=== PATIENT | female | born 1955 | race Caucasian/White ===

== ENCOUNTER 2023-11-21 15:52 | Emergency (ER) | payer OTHER, SELFPAY ==
[2023-11-21 15:54] VITALS: BP 165/88; PULSE 85; RESP 16; TEMP 36.7; O2SAT 98
--- NOTE | 2023-11-21 16:19 | ED.GENADULT ---
HPI - General Adult General Chief complaint: Skin/Abscess/Foreign Body Stated complaint: hearing aid stuck Time Seen by Provider: 11/21/23 16:08 History of Present Illness HPI narrative: 60-year-old female presented to the emergency department for evaluation for the distal tip of her hearing aid is lodged in her right ear. Patient states this happened at approximately 11:00 p.m. last night when she took her earring out she noticed that the rubber tip was missing and could feel was still in her ear. Patient initially presented to audiology but unfortunately the tip was placed further in. Patient then went to urgent care he and was then referred to the emergency department. Related Data Home Medications Medication Instructions Recorded Confirmed ascorbic acid (vitamin C) 1,000 mg 1 g PO DAILY 07/27/20 06/17/23 tablet cholecalciferol (vitamin D3) 125 125 mcg PO DAILY 07/27/20 06/17/23 mcg (5,000 unit) capsule multivitamin 1 tablet PO DAILY 07/27/20 06/17/23 vitamin B complex (B 1 tablet PO DAILY 07/27/20 06/17/23 Complex-Vitamin B12 tablet) vitamin E 100 unit capsule 100 unit PO DAILY 07/27/20 06/17/23 zinc 50 mg tablet 50 mg PO DAILY 07/27/20 06/17/23 Allergies Allergy/AdvReac Type Severity Reaction Status Date / Time Penicillins Allergy Unknown Hives Verified 11/21/23 13:18 Review of Systems Review of Systems: All systems reviewed & are unremarkable except as noted in HPI and below PMFSH Past Medical History Medical History Allergies Chronic idiopathic urticaria Dislocation of right shoulder joint Hyperlipidemia Hypertension Surgical History Surgical History No pertinent past surgical history Family History Family History Father Diabetes mellitus Hypertension Depression Anxiety Heart disease Cerebrovascular accident Mother Cancer Sibling Cancer Diabetes mellitus Hypertension Anxiety Depression Heart disease Grandparent Cancer Diabetes mellitus Hypertension Grandparent Cancer Diabetes mellitus Hypertension Heart disease Social History Social History Smoking status: Never smoker Second hand tobacco smoke exposure: No Alcohol intake: never Substance use: never Substance use type: does not use Lack of Transportation: No Lack of Food: Never True Current Housing: I Have Housing Concerned About Future Housing: No Difficulty Paying Gas/Electric Bills: No Difficulty Paying for Meds: No Currently Unemployed: No Education: High School Diploma/GED Difficulty w/ Childcare or Family Care: No Living arrangements: with family Occupation/Education: retired Gender identity (if verbalized by the patient): Female Sexual Orientation (if Verbalized by the Patient): Straight or Heterosexual Spiritual care concerns: No Agree to blood products: Yes Exam Narrative: APPEARANCE: Well appearing, no pain, no distress, well-nourished. HEAD: normocephalic, atraumatic. EYES: PERRLA/EOMI, conjunctivae clear. NOSE: Normal no drainage EARS: rubber tip was in the right ear canal, this was removed as described in the procedure note and the right TM did have some erythema but no evidence of perforation. THROAT: Pharynx clear, no exudate. NECK: Supple. No adenopathy, no masses. RESPIRATORY: Airway patent, respirations nonlabored. Clear to auscultation bilaterally, no rales, rhonchi, wheezing. CARDIOVASCULAR: Regular rate and rhythm without murmurs rubs or gallops. ABDOMINAL: Soft, nontender, nondistended, normal bowel sounds MUSCULOSKELETAL: Moves all extremities. Strength/ROM intact, No edema, No calf tenderness. NEURO: Alert. Cranial nerves II through XII intact. Grossly intact SKIN: Warm, dry. Normal Color Course Vital Signs Alejandra
[2023-11-21 16:43] VITALS: BP 137/62; PULSE 82; RESP 17; TEMP 36.7; O2SAT 18
== END 2023-11-21 16:45 | disposition home or self-care (01) ==
LOC: ANHED 16:24
PROVIDERS: Emergency Provider Emergency Medicine; PCP Physician Assistant Medical
DX: T16.1XXA Foreign body in right ear, initial encounter (principal); E78.5 Hyperlipidemia, unspecified; I10 Essential (primary) hypertension; Z79.899 Other long term (current) drug therapy; W44.G1XA Audio device entering into or through a natural orifice, initial encounter
CPT/HCPCS: 69200; 99282

== ENCOUNTER 2025-02-24 01:39 | Day surgery (SDC) | payer OTHER, SELFPAY ==
--- OUTSIDE RECORDS SUMMARY | 2023-10-18 16:30 | XMS_ITS ---
Author Organization [facility] [place] ([address]) Address [address] [place] [address] Care Team Providers Care Igniter Assembler Name Role Phone Torin Slaughterah Primary Care Provider Unavailab Lawrence Gomez Unavailable [phone] SHAWANDA-Suzanna, Provider Unavailable Unavailab ej REASON FOR VISIT [facility] To [facility] Conversion Encounter Medications Medication SIG (Take, Route, [...] Location Date Provider Diagnosis [facility] - Stephanie [address] [place] [address] [place] [address] 10/18/2023 Provider Dusty Idiopathic urticaria L50.1 and [...] Notes * Candice FLOYDOB:1955 (70 yo F)Acc No.[id number]:10/18/2023 Patient: Gwendolyn GOMEZ Provider: Lesly Briseno :1955 A ge:68 Y S ex:Female Date:10/18/2023 Address:[address] [place], [place] [id number] Pcp:Leah Slaughter Subjective: * Chief Complaints: * 1 . [facility] Conversion Encounter. * Medical History: * Medications: [...] Procedure Codes: * Electronic signature of Timmy MAYBERRY-Migration on 02/24/2025 at 01:56 AM CDT Sign off status: Pending * Provider: Lesly vega Migration Date: 0 10/18/2023 Generated for Jazmine scales/Ortiz/Henny on: 01:56 AM CDT
--- OUTSIDE RECORDS SUMMARY | 2024-06-16 12:30 | XMS_ITS ---
Author Organization [facility] [place] ([address]) Address [address] [place] [address] Care Team Providers Care Tablet Making Machine Operator Name Role Phone Leah Slaughter Primary Care Provider UnavailLawrence Haskins Unavailable [phone] REASON FOR VISIT [facility] follow-up Encounters Encounter Location Date Provider Diagnosis [address] [address] 06/16/2024 Lawrence Taylor Plan Of Treatment No Information Progress Notes * Candice FLOYDOB:1955 (70 yo F)Acc No.[id number]:06/16/2024 Progress Notes Patient: Gwendolyn GOMEZ Provider: Gonzalo Taylor PA-C :1955 A ge:69 Y S ex:Female Date:06/16/2024 Address:[address] [facility] Pcp:Leah Slaughter Subjective: * Chief Complaints: * 1 . [facility] follow-up. * Medical History: Objective: * Vitals: Assessment: Plan: * Treatment: * Billing Information: * Visit Code: * Procedure Codes: * Electronic signature of Armin Taylor PA-C on 02/24/2025 at 01:57 AM CDT Sign off status: Pending * Provider: Gonzalo Taylor PA-C Date: 0 06/16/2024 Generated for Printi ng/Faxing/eTransmitting on: 1 01:57 AM CDT
--- OUTSIDE RECORDS SUMMARY | 2024-09-02 12:30 | XMS_ITS ---
Author Organization [facility] [place] ([address]) Address [address] [place] [address] Care Team Providers Care Visitor Services Representative Name Role Phone Leah Slaughter Primary Care Provider UnavailLawrence Haskins Unavailable [phone] REASON FOR VISIT [facility] follow-up Encounters Encounter Location Date Provider Diagnosis [address] [address] 09/02/2024 Lawrence Taylor Plan Of Treatment No Information Progress Notes * Candice FLOYDOB:1955 (70 yo F)Acc No.[id number]:09/02/2024 Progress Notes Patient: Gwendolyn GOMEZ Provider: Gonzalo Taylor PA-C :1955 A ge:69 Y S ex:Female Date:09/02/2024 Address:[address] [facility] Pcp:Leah Slaughter Subjective: * Chief Complaints: * 1 . [facility] follow-up. * Medical History: Objective: * Vitals: Assessment: Plan: * Treatment: * Billing Information: * Visit Code: * Procedure Codes: * Electronic signature of Armin Taylor PA-C on 02/24/2025 at 01:56 AM CDT Sign off status: Pending * Provider: Gonzalo Taylor PA-C Date: 0 09/02/2024 Generated for Printi ng/Faxing/eTransmitting on: 1 01:56 AM CDT
[2025-02-15 10:38] VITALS: BMI 30.7
--- OUTSIDE RECORDS SUMMARY | 2025-02-24 01:56 | XMS_ITS | Encounter Summary ---
Author Organization [facility] Address [address] [facility] [place] [address] Care Team Providers Care Adult Educator Name Role Phone Noemí Vitale Primary Care Provider Encounter Details Date Type Department Care Team (Late st Contact Info) Description 08/31/2020 Telephone [facility] [address] [place] [address] Demarcus Lucia MD [address] OF ALLERGY/IMMUNOLOGY [place], [place] [id number] Social History Tobacco Use Types Packs/Day Years Used Date Smoking Tobacco: Never Smokeless Tobacco: Never Comments Unknown Sex and Gender Information Value Date Recorded Sex Assigned at Not on file Legal Sex Female 9:06 AM CDT Gender Identity Not on file Sexual Orientation Not on file COVID-19 Exposure Response Date Recorded In the last month, have you been in contact with someone who was confirmed or suspected to have Coronavirus / COVID-19? No / Unsure 08/04/2020 11:08 AM CDT documented as of this encounter Miscellaneous Notes * Telephone Encounter - Kady Lewis - 08/31/2020 9:28 AM CDT Current Provider name: Dr. Lucia Reason for call: Gwendolyn Peters has called re: paperwork needed from Dr. Lucia so she can gether Zolair Infusion shots at the Infusion center. Please reach out again and give her a call. She also spoke to Dr. Villanueva and she says she's spoken to Jennifer. Thanks. Patient Call Back number: [phone] documented in this encounter Plan of Treatment Not on file documented as of this encounter Visit Diagnoses Not on filedocumented in this encounter Care Teams Adult Educator Relationship Specialty Start Date End Date Noemí Vitale DO [address] [place] [id number] PCP - General Family Medicine 08/23/20 documented as of this encounter
--- OUTSIDE RECORDS SUMMARY | 2025-02-24 01:57 | XMS_ITS | Data Portability ---
Author Organization [facility] [place], [place] for [facility], [id number] [facility] Address [address] [place] [address] Assessment No assessment recorded. Plan of Treatment Reminders Order Date Submit Date Provider Last Modified By Organization Details Last Modified Time Details Appointments ANNUAL- EST 15 2025 07:30A M MICK MIMS MD Not available Not available Not available Lab None recorded. Referral None recorded. Procedures None recorded. Surgeries None recorded. Imaging MAMMO, screening , tomosynth esis, bilateral [address] [place] [address] - Radiology New Fax # As Of 08/25/23), [address] [place], [address], 02/17/2025 08:53:28 Medication Orders None recorded. Patient TargetsNo targets recorded. Patient InstructionsNo instructions recorded. Reason for Referral None Reported. Problems Name Problem SNOMED Code Status Onset Date Resolution Date Notes Provider Name and Address Organization Details Recorded Time Idiopathic urticaria 80620671 Active Chronic idiopathic urticaria, Problem Code: 708.1; Problem Code Type: ICD-9; Not Available [facility] 12:22:40 Essential hypertensi on 52109594 Active High Blood Pressure, Problem Code Descriptio n: 'High Blood Pressure'; Not Available [facility] 12:22:40 Hyperchole sterolemia 23299577 Active 2024 Sarah mejia [facility] [place], [place] for [facility] 2001 07/24/202 5 08:51:19 Problem Notes None recorded. Procedures Surgical History Date Name Laterality Status Provider Name and Address Organization Details Recorded Time 5 Date of Last Mammogram completed [facility] 11/25/2024 08:52:34 0 Date of Last Pap Smear completed [facility] 11/24/2024 16:17:22 Imaging Results None recorded. Procedure Notes None recorded. Medical Equipment None Reported. Allergies Allergen ID Allergen Name Allergen Category Reaction Reaction Severity Criticality Documentation Date Start Date Code Code System Note Provider Name and Address Organization Details Recorded Time 138375 Product containin g penicilli n (product) medicatio n hives Not available Not available 09/02/2024 52393 8001 SNOMED Aller gyCod e: '476' ; Aller gyNam e: 'PENI CILLI NS'; Aller gyCon ceptT ype: 'FDBA LLERG P'; Not Available [facility] 5 13:06:54 189453 pseudoeph edrine / triprolid ine medicatio n hives Not available Not available 09/02/2024 75714 7 RxNorm Not Available [facility] 13:06:55 Medications Name Sig Start Date Stop Date Status Note LastModified by Organization Details LastModified Time prednisone 10 mg tablet TAKE 3 TABLETS BY MOUTH DAILY FOR 3 DAYS, 2 TABLETS FOR 3 DAYS, THEN 1 TABLET FOR 3 DAYS active Not Available Not Available No t Available lisinopril 20 mg tablet TAKE 1 TABLET BY MOUTH EVERY DAY active Not Available Not Available No t Available famotidine 20 mg tablet TAKE 1 TABLET BY MOUTH ONCE DAILY 11/25 completed Not Available Not Available Not Available simvastatin 20 mg tablet TAKE 1 TABLET BY MOUTH AT BEDTIME active Not Available Not Available No t Available prednisone 50 mg tablet TAKE 1 TABLET BY MOUTH EVERY DAY FOR 5 DAYS 11/25 completed Not Available Not Available Not Available omeprazole 20 mg capsule,savannah yed release TAKE 1 CAPSULE BY MOUTH EVERY DAY active Not Available Not Available No t Available furosemide 20 mg tablet TAKE 1 TABLET BY MOUTH IN THE MORNING active Not Available Not Available No t Available atenolol 50 mg tablet TAKE 1 TABLET BY MOUTH EVERY DAY active Not Available Not Available No t Available fenofibrate nanocrystall ized 145 mg tablet TAKE 1 TABLET BY MOUTH EVERY DAY active Not Available Not Available No t Available Vitals Date Recorded Body height Body mass index (BMI) Body weight Systolic And Diastolic Provider Name and Address Organization Details Last Updated DateTime 11/25/2024 165.1 cm 31.4 kg/m2 41413.8 g 124/68 mm[Hg] Sarah Sampson [facility] [place], [place] [facility] 11/25/2024 08:49:25 Social History Question Answer Notes LastModified by LilaKutu Details LastModified Time Tobacco Smoking Status Never Smoker Not Available [facility] 09/02/2024 15:16:23 Do You Have An Advance Directive? No Information not available 11/25/2024 If You Are , What Was Your Level Of Alcohol Consumption Prior To ? None Information not available 11/25/2024 What Is Your Level Of Caffeine Consumption? Moderate Information not available 11/25/2024 What Type Of Diet Are You Following? REGULAR Information not available 11/25/2024 How Many Times Per Week Do You Exercise? Less Than 1 Time Per Week SocialHistor yQuestion: 'Minimal Amount Of Exercise (Once Weekly Or Less)'; Information not available 09/02/2024 What Is Your Relationship Status? Information not available 11/24/2024 Sex: Female Functional Status Question Answer Note LastModified by LilaKutu Details LastModified Time Do you use any illicit or recreational drugs? No Information not available 09/02/2024 What is your level of alcohol consumption? Occasional Qty: 0-2 per day; Note: Use status used: Never Information not available 09/02/2024 Are you currently employed? 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 Family History Relationship Description Onset Age of this Age Resolved Age Notes LastModified by Organization Details LastModified Time Father Myocardial infarction Myocar dial Infarc tion Not available 09/02/2024 15:46:52 Father Hypertensive disorder High Blood Pressu re Not available 09/02/2024 15:46:53 Father Heart disease Heart Diseas e Not available 09/02/2024 15:46:53 Brother Hypertensive disorder High Blood Pressu re Not available 09/02/2024 15:46:52 Mother Hypertensive disorder High Blood Pressu re Not available 09/02/2024 15:46:53 Mother Malignant neoplasm of uterus bvoellinger Not available 11/03 08:45:16 Mother Malignant neoplastic disease bvoellinger Not available 11/03 08:45:16 Brother Leukemia all brothe rs bvoellinger Not available 11/25/2024 08:45:16 Brother Malignant neoplastic disease bvoellinger Not available 11/03 08:45:16 Medical History Condition Response Cancer- Genetic screening ID-Other Y Cardiology- High Blood Pressure Y Gynecological History Statement/Question Response Date of Last Mammogram 09/01/2024 History of Fibroids N Current Control Method: Menopause History of Recurrent Ovarian Cysts N Cologuard Testing Y Age at first intercourse 17 If Post Menopausal, Age at Menopause 50 Post Menopausal Hormone Therapy User Nev er Date of Last Colonoscopy Date of Last HPV Test 05/20/2019 Date of Last Cholesterol Screening 03/05 History of PCOS N History of Infertility N History of Cervical Dysplasia N History of Vulvar Dysplasia N Current Control Method Age at Menarche 13 History of Endometriosis N Sexually Active? Y History of Dysmenorrhea N Menses Monthly N Date of Last Pap Smear 05/20/2019 Sexual Problems? N History of Sexually Transmitted Infectio n N Date of Last Bone Density Obstetrics History GPAL:G 2 P 2 0 0 2 Type Value Multiple Births 0 Full Term 2 Induced 0 Spontaneous 0 Premature 0 Living 2 Ectopics 0 Total 2 Immunizations Vaccine Type Date Status Note Provider Nam e and Address Organization Details Recorded Time Influenza, MDCK, quadrivalent, PF 2 [facility] 11/24/2024 16:15:16 Influenza, high-dose, quadrivalent, PF 2 korina mejia [facility] 11/24/2024 16:15:16 Influenza, high-dose, quadrivalent, PF 0 completed Sarah Voellinger null, [place] - [facility] 11/24/2024 16:15:16 Influenza, adjuvanted, quadrivalent, PF 1 completed Sarah Voellinger null, [place] [facility] 11/24/2024 16:15:16 COVID-19, mRNA, LNP-S, PF, 100 mcg/0.5mL dose or 50 mcg/0.25mL dose 1 completed Sarah Voellinger null, [place] - [facility] 11/24/2024 16:15:16 Tdap 5 completed Sarah Voellinger null, [place] [facility] 11/24/2024 16:15:16 Pneumococcal conjugate PCV 13 1 completed Sarah Voellinger null, [place] - [facility] 11/24/2024 16:15:16 Past Encounters Encounter ID Performer Location Encounter Start Date Encounter Closed Date Diagnosis/Indication Diagnosis SNOMED-CT Code Diagnosis ICD10 Code Diagnosis IMO Codes Diagnosis Note [id number] MICK COLEY [address], MD [id number] [facility] [address] [facility] [place] [address] 11/25/2024 08:35:03 11/25/2024 09:29:14 Screening mammography 71634211 Z12.31 13959992 Gynecologi c examination 57476287 Z01.705 2315216 Doing well.Yearl y mammogram due in [facility] reening colonoscop y--recGene ral lab screening yearly--do ne with PCP Health Concerns Section Related Observation LastModified by Organization Detai ls LastModified Time None Recorded Concern Status LastModified by Organization Details LastModified Time None Recorded Advance Directives Directive N: Payers Insurance Date Sequence Insurance Name Policy Number Policy Keys Covered Member ID Keys Member ID Guarantor Name 12/30/2024 1 [facility] (MEDICARE REPLACEMENT HMO) [id number] Gwendolyn Peters [id number] Gwendolyn Peters 11/23/2024 1 *SELF PAY* Toy Peters Notes Date Note Type Note Provider Name and Address Organization Details Recorded Time 5 text/html Annual ADMINISTRATIVE COURT JUSTICE - McwhcReported by PatientHistoryFor history, patient reportsno gynecologic complaintsandno change in interval history.Genitourinary symptomsFor urinary symptoms, patient reportsno hematuriaandno incontinence. For vulvar complaints, patient reportsnone. For vaginal complaints, patient reportsnone.Breast symptomsFor breast, patient reportsno breast pain,no breast lump, andno nipple discharge.Endocrine symptomsFor sexual complaints, patient reportsno sexual complaintsandnormal libido. For menopausal symptoms, patient reportsno menopausal symptoms.Psychological symptomsFor psychological symptoms, patient reportsno depression(screener is 2. doing well. stays very active).Preventative measuresFor preventive measures, patient reportsencourage regular exercise,encourage no tobacco use, andencourage regular mammograms starting age 40(consider colonoscopy).Discussed diet and exercise.ROS as noted in the HPI Assistant Research Scientist offered per [facility] policy. Assistant Research Scientist was DECLINED.Patient is here for annual exam. No complaints. No postmenopausal bleedingPoison Michelle todayOn steriods. No other issues. MICK LIZ MD [address] [facility] [address], [place], [address], [facility] 11/25/2024 09:36:52 OBGyn Episode No OBEpisode recorded.
--- OUTSIDE RECORDS SUMMARY | 2025-02-24 01:57 | XMS_ITS | Patient Health Record ---
Author Organization [facility] [place] ([address]) Address [address] [place] [address] Care Team Providers Care Oral Communication Instructor Name Role Phone Leah Slaughter Primary Care Provider Lawrence Clayton Unavailable [phone] Allergies No Known Allergies Reason For Referral Reason L50.0 Referring Provider First Name Fidel Referring Provider Last Name Turner Referred Organization [facility] Referred Provider Lawrence Taylor Referred Address [address] [place],[address], Referred Provider Specialty Allergy/Immu nology Referral Priority Routine Medications Medication SIG (Take, Route, Frequency, Duration) Notes Start Date End Date Status LISINOPRIL 20 mg TAKE 1 TABLET BY MOUTH EVERY DAY. APPOINTMENT NEEDED Active FUROSEMIDE 20 mg TAKE 1 TABLET BY MOUTH EVERY MORNING. APPOINTMENT NEEDED Active SIMVASTATIN 20 mg 1 tab(s) orally once a day (at bedtime); Duration: 30 day(s) Active Lisinopril 20 MG TAKE 1 TABLET BY MOUTH EVERY DAY. APPOINTMENT NEEDED Active ATENOLOL 50 mg TAKE 1 TABLET BY MOUTH EVERY DAY. PLEASE CALL FOR APPOINTMENT Active Furosemide 20 MG TAKE 1 TABLET BY MOUTH EVERY MORNING. APPOINTMENT NEEDED Active FENOFIBRATE 145 mg 1 tab(s) orally once a day Active Simvastatin 20 MG 1 tab(s) orally once a day (at bedtime); Duration: 30 day(s) Active Atenolol 50 MG TAKE 1 TABLET BY MOUTH EVERY DAY. PLEASE CALL FOR APPOINTMENT Active Xolair 150 MG as directed 300 mg subcutaneously every 4 weeks; Duration: 30 days Active Auvi-Q 0.3 MG/0.3ML as directed intramuscularly once; Duration: 30 days Active XOLAIR 150 mg as directed 300 mg subcutaneously every 4 weeks; Duration: 30 days Active CETIRIZINE 10 mg 1 tab(s) orally daily; Duration: 30 day(s) Not-Taking AUVI -Q 0.3 mg as directed intramuscularly once; Duration: 30 days Active Cetirizine HCl 10 MG 1 tab(s) orally daily; Duration: 30 day(s) Not-Taking XOLAIR PREFILLED SYRINGE 150 MG/ML INJECT 300 MG SUBCUTANEOUSLY EVERY 4 WEEKS; Duration: 84 DAYS *Please review for potential replacement for e-prescription and drug interaction check* 10/03/2021 Not-Taking Fenofibrate 145 MG 1 tab(s) orally once a day Active Immunizations Vaccine Route Administration Date Status Comme nts NOC Prevnar 13 Unknown 03/07/2021 Administered Flucelvax Unknown 03/08/2022 Administered COVID-19 (Moderna) Unknown 06/30/2020 Administered Fluad Unknown 03/07/2021 Administered Social History Tobacco Use: Social History Observation Description Date Details (start date - stop date) Never Smoker NA - NA Smoking Smart Form: Question Answer Notes Are you a: never smoker Tobacco Control (Standard) Question Answer Notes Tobacco use: Nonsmoker Problems Problem Type SNOMED Code ICD Code Onset Dates Problem Status W/U Status Risk Notes Problem Hyperlipidemia (51124939) Other hyperlipidemia (E78.4) Active confirmed Problem Chronic allergic conjunctivitis (85218096) Other chronic allergic conjunctivitis (H10.45) Active confirmed Problem Allergic rhinitis caused by pollen (disorder) (47890452) Allergic rhinitis due to pollen (J30.1) Active confirmed Problem Allergic rhinitis caused by animal hair and dander (983398789228176) Allergic rhinitis due to animal (cat) (dog) hair and dander (J30.81) Active confirmed Problem Allergic rhinitis (81269530) Other allergic rhinitis (J30.89) Active confirmed Problem Uncomplicated moderate persistent asthma (630514824) Moderate persistent asthma, uncomplicated (J45.40) Active confirmed Problem Uncomplicated severe persistent asthma (208211717) Severe persistent asthma, uncomplicated (J45.50) Active confirmed Problem 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 Problem Idiopathic urticaria (82217946) Idiopathic urticaria (L50.1) Active confirmed Problem Hypertrophy of nasal turbinates (13501445) Hypertrophy of nasal turbinates (J34.3) Active confirmed Problem Essential hypertension (30679334) Essential (primary) hypertension (I10) Active confirmed Plan Of Treatment No Information Insurance Providers Payer Name Payer Address Payer Phone Subscriber Number Group Number Insured Name Patient Relationship to Insured Coverage Start Date Coverage End Date [employer] [address] [address] [place] [phone] [id number] Gwendolyn Peters Self - patient is the insured Medical (General) History Medical History History ICD Code Other hyperlipidemia E78.4 Essential (primary) hypertension I10 Idiopathic urticaria L50.1 Cholinergic urticaria L50.5 Hypertrophy of nasal turbinates J34.3 Surgical History Surgery Date(Month/Year)
[2025-02-24 07:37] VITALS: BP 158/86; PULSE 93; RESP 16; TEMP 36.9; O2SAT 98; BMI 30.7
[2025-02-24] MEDS: LACTATED RINGERS 1,000 ML 150 ML IV CONT (07:57)
--- NOTE | 2025-02-24 08:37 | PM.HPGS ---
History of Present Illness History of Present Illness Consent: Risks, benefits, and alternatives have been discussed and questions answered. Patient agrees to proceed with procedure. Chief complaint: screening/positive cologuard Narrative: Gwendolyn Peters is a 70 year old female here for first colonoscopy, had + cologuard Review of Systems Review of Systems: All systems reviewed & are unremarkable except as noted in HPI and below PMFSH Past Medical History Medical History (Updated 02/24/25 @ 08:38 by Maurisio Fowler MD) Positive colorectal cancer screening using Cologuard test GERD (gastroesophageal reflux disease) Hyperglycemia Dislocation of right shoulder joint Hyperlipidemia Chronic idiopathic urticaria Hypertension Allergies Surgical History Surgical History No pertinent past surgical history Family History Family History Father Diabetes mellitus Hypertension Depression Anxiety Heart disease Cerebrovascular accident Mother Cancer Sibling Cancer Diabetes mellitus Hypertension Anxiety Depression Heart disease Grandparent Cancer Diabetes mellitus Hypertension Grandparent Cancer Diabetes mellitus Hypertension Heart disease Social History Social History Social History: 07/06/24 very confident with medical forms 01/04/25 patient declined SDOH Smoking status: Never smoker Second hand tobacco smoke exposure: No Alcohol intake: never Substance use: never Substance use type: does not use Do You Feel Safe in your Home?: Yes Lack of Transportation: No Lack of Food: Never True Current Housing: I Have Housing Concerned About Future Housing: No Difficulty Paying Gas/Electric Bills: No Difficulty Paying for Meds: No Currently Unemployed: No Education: High School Diploma/GED Difficulty w/ Childcare or Family Care: No Living arrangements: with family Occupation/Education: retired Gender identity (if verbalized by the patient): Female Sexual Orientation (if Verbalized by the Patient): Straight or Heterosexual Spiritual care concerns: No Agree to blood products: Yes Meds Home Medications and Allergies Home Medications ?Medication ?Instructions ?Recorded ?Confirmed ?Type ascorbic acid (vitamin C) 1,000 mg 1 g PO DAILY 07/27/20 02/24/25 History tablet cholecalciferol (vitamin D3) 125 125 mcg PO DAILY 07/27/20 02/24/25 History mcg (5,000 unit) capsule multivitamin 1 tablet PO DAILY 07/27/20 02/24/25 History vitamin B complex (B 1 tablet PO DAILY 07/27/20 02/24/25 History Complex-Vitamin B12 tablet) vitamin E 100 unit capsule 100 unit PO DAILY 07/27/20 02/24/25 History zinc 50 mg tablet 50 mg PO DAILY 07/27/20 02/24/25 History omeprazole 20 mg tablet,delayed 20 mg PO DAILY #90 tabs 11/03/24 02/24/25 Rx release furosemide 20 mg tablet 20 mg PO QAM #14 tabs 12/24/24 02/24/25 Rx atenolol 50 mg tablet 50 mg PO DAILY #90 tabs 02/01/25 02/24/25 Rx fenofibrate nanocrystallized 145 145 mg PO DAILY #90 tabs 02/01/25 02/24/25 Rx mg tablet lisinopril 20 mg tablet 20 mg PO DAILY #90 tabs 02/01/25 02/24/25 Rx simvastatin 20 mg tablet 20 mg PO QHS #90 tabs 02/01/25 02/24/25 Rx Allergies Allergy/AdvReac Type Severity Reaction Status Date / Time Penicillins Allergy Unknown Hives Verified 02/24/25 07:43 Vital Signs Vital Signs - 24 hr 02/24/25 07:37 Temperature 98.5 F Pulse Rate 93 Respiratory Rate 16 Blood Pressure 158/86 H Pulse Oximetry 98 Oxygen Delivery Room Air Exam Const: General: comfortable and no acute distress HENMT: Face/Nose/Sinus: Normal nares present Eyes: General: appearance normal, both eyes and all related structures Neck: Neck: no JVD Resp: Auscultation: clear to auscultation bilaterally Cardio: Rate: regular rate Rhythm: regular rhythm GI: Inspection: non-distended GI Palp: Yes Soft to palpation Skin: General skin exam: normal color Extrem: General: normal to inspection Psych: Mental Status: mental status grossly normal Assessment and Plan Assessment and plan (1) Positive colorectal cancer screening using Cologuard test: Code(s): R19.5 - Other fecal abnormalities Status: Acute Assessment and Plan: colonoscopy
--- NOTE | 2025-02-24 08:38 | WPDANESEPPF ---
Anes - Initial Pre Proc Eval Procedure: Operation Date: 02/24/25 08:30 Proposed Procedures p Screening Colonoscopy - Maurisio Fowler MD Date/Time: 02/24/25 08:38 Surgeon: Maurisio Fowler MD Pre Op Diagnosis: screening/positive cologuard Patient Data Age: 70 Gender: F Height: 1.65 m Weight: 83.9 kg Last Vital Signs Temp 98.5 F 02/24/25 07:37 Pulse 93 02/24/25 07:37 Resp 16 02/24/25 07:37 BP 158/86 H 02/24/25 07:37 Pulse Ox 98 02/24/25 07:37 O2 Del Method Room Air 02/24/25 07:37 Allergies Allergy/AdvReac Type Severity Reaction Status Date / Time Penicillins Allergy Unknown Hives Verified 02/24/25 07:43 Home Medications ?Medication ?Instructions ?Recorded ?Confirmed ?Type ascorbic acid (vitamin C) 1,000 mg 1 g PO DAILY 07/27/20 02/24/25 History tablet cholecalciferol (vitamin D3) 125 125 mcg PO DAILY 07/27/20 02/24/25 History mcg (5,000 unit) capsule multivitamin 1 tablet PO DAILY 07/27/20 02/24/25 History vitamin B complex (B 1 tablet PO DAILY 07/27/20 02/24/25 History Complex-Vitamin B12 tablet) vitamin E 100 unit capsule 100 unit PO DAILY 07/27/20 02/24/25 History zinc 50 mg tablet 50 mg PO DAILY 07/27/20 02/24/25 History omeprazole 20 mg tablet,delayed 20 mg PO DAILY #90 tabs 11/03/24 02/24/25 Rx release furosemide 20 mg tablet 20 mg PO QAM #14 tabs 12/24/24 02/24/25 Rx atenolol 50 mg tablet 50 mg PO DAILY #90 tabs 02/01/25 02/24/25 Rx fenofibrate nanocrystallized 145 145 mg PO DAILY #90 tabs 02/01/25 02/24/25 Rx mg tablet lisinopril 20 mg tablet 20 mg PO DAILY #90 tabs 02/01/25 02/24/25 Rx simvastatin 20 mg tablet 20 mg PO QHS #90 tabs 02/01/25 02/24/25 Rx Patient hx anesthesia problems: none Family hx anesthesia problems: none Results Review: All pre-operative results and documents have been reviewed as part of the pre-operative evaluation. [facility] Past Medical History Medical History Positive colorectal cancer screening using Cologuard test GERD (gastroesophageal reflux disease) Hyperglycemia Dislocation of right shoulder joint Hyperlipidemia Chronic idiopathic urticaria Hypertension Allergies Surgical History Surgical History No pertinent past surgical history Family History Family History Father Diabetes mellitus Hypertension Depression Anxiety Heart disease Cerebrovascular accident Mother Cancer Sibling Cancer Diabetes mellitus Hypertension Anxiety Depression Heart disease Grandparent Cancer Diabetes mellitus Hypertension Grandparent Cancer Diabetes mellitus Hypertension Heart disease Social History Social History Social History: 07/06/24 very confident with medical forms 01/04/25 patient declined SDOH Smoking status: Never smoker Second hand tobacco smoke exposure: No Alcohol intake: never Substance use: never Substance use type: does not use Do You Feel Safe in your Home?: Yes Lack of Transportation: No Lack of Food: Never True Current Housing: I Have Housing Concerned About Future Housing: No Difficulty Paying Gas/Electric Bills: No Difficulty Paying for Meds: No Currently Unemployed: No Education: High School Diploma/GED Difficulty w/ Childcare or Family Care: No Living arrangements: with family Occupation/Education: retired Gender identity (if verbalized by the patient): Female Sexual Orientation (if Verbalized by the Patient): Straight or Heterosexual Spiritual care concerns: No Agree to blood products: Yes Anes - Eval Final PreProcedure Day of Procedure 02/24/25 08:38 Patient weight: overweight Heart: regular rate and rhythm Lungs: clear to auscultation Airway: Mallampati scale class II Neurological: alert and oriented Last oral intake: >/= 8 hours ASA classification: III Emergent: no Anesthetic plan: proceed Anesthesia type and monitoring: general GIVS Results Review: All pre-operative results and documents have been reviewed as part of the pre-operative evaluation. Informed Consent: The patient's anesthetic plan and its attendant risks and benefits were discussed with the patient/family/POA. Questions were solicited and answers provided to the satisfaction of the patient/family/POA.
--- NOTE | 2025-02-24 09:01 | S_PTH ---
PATIENT: Gwendolyn Peters LOC: [facility]INA Hubbard#:[id number] AGE/SX: 70/F ROOM: RE02/24/[address]: Maurisio Fowler MD : 1955 BED: DIS: 02/24/2025 SPEC #: [id number] RECD: 02/24/25 11:09 STATUS: ABY RELaci #: [id number] PREMA: 02/24/25 09:[address]: Maurisio Fowler DEPT: [facility] Surgical RECD BY: Kathy Pena ENTERED: 02/24/25 11:10 SP TYPE: Surgical OTHR DR: Araceli Slaughter PA-C Tissues: A - Colon Polypectomy B - Colon Polypectomy Procedures: Hematoxylin and Eosin Stain Gross and Microscopic Level 4
[2025-02-24 09:04] VITALS: BP 88/56; PULSE 81; RESP 23; O2SAT 99
[2025-02-24 09:14] VITALS: BP 120/71; PULSE 78; RESP 20; O2SAT 97
[2025-02-24 09:24] VITALS: BP 119/59; PULSE 70; RESP 19; O2SAT 98
== END 2025-02-24 09:31 | disposition home or self-care (01) ==
PROVIDERS: PCP Physician Assistant Medical; Referring Provider Physician Assistant Medical; Visit Provider Internal Medicine Gastroenterology
PROC: 0DJD8ZZ Inspection of Lower Intestinal Tract, Via Natural or Artificial Opening Endoscopic (ICD-10-PCS; CPT 45378; principal; 2025-02-24 08:30)
DX: R19.5 Other fecal abnormalities (principal); D12.0 Benign neoplasm of cecum; K63.5 Polyp of colon; K64.8 Other hemorrhoids; K57.30 Diverticulosis of large intestine without perforation or abscess without bleeding; E78.5 Hyperlipidemia, unspecified; I10 Essential (primary) hypertension; K21.9 Gastro-esophageal reflux disease without esophagitis; R73.9 Hyperglycemia, unspecified; L50.8 Other urticaria; Z80.9 Family history of malignant neoplasm, unspecified; Z82.49 Family history of ischemic heart disease and other diseases of the circulatory system
CPT/HCPCS: 45385; 88305; J2003; J2704; J7120

== ENCOUNTER 2025-03-12 22:54 | Emergency (ER) | payer OTHER, SELFPAY ==
--- OUTSIDE RECORDS SUMMARY | 2023-10-18 15:30 | XMS_ITS ---
Author Organization [facility] [place] ([address]) Address [address] [place] [address] Care Team Providers Care Linen Supply Load Builder Name Role Phone Torin Slaughterah Primary Care Provider Unavailab Lawrence Gomez Unavailable [phone] SHAWANDA-Suzanna, Provider Unavailable Unavailab ej REASON FOR VISIT [facility] To [facility] Conversion Encounter Medications Medication SIG (Take, Route, Frequency, Duration) Notes Start Date End Date Status Cetirizine HCl 10 MG 1 tab(s) orally daily; Duration: 30 day(s) Not-Taking Furosemide 20 MG TAKE 1 TABLET BY MOUTH EVERY MORNING. APPOINTMENT NEEDED Active Xolair 150 MG as directed 300 mg subcutaneously every 4 weeks; Duration: 30 days Active XOLAIR PREFILLED SYRINGE 150 MG/ML INJECT 300 MG SUBCUTANEOUSLY EVERY 4 WEEKS; Duration: 84 DAYS *Please review for potential replacement for e-prescription and drug interaction check* 10/03/2021 Not-Taking Fenofibrate 145 MG 1 tab(s) orally once a day Active Lisinopril 20 MG TAKE 1 TABLET BY MOUTH EVERY DAY. APPOINTMENT NEEDED Active Simvastatin 20 MG 1 tab(s) orally once a day (at bedtime); Duration: 30 day(s) Active Atenolol 50 MG TAKE 1 TABLET BY MOUTH EVERY DAY. PLEASE CALL FOR APPOINTMENT Active Auvi-Q 0.3 MG/0.3ML as directed intramuscularly once; Duration: 30 days Active Encounters Encounter Location Date Provider Diagnosis [facility] - Stephanie [address] [place] [address] [place] [address] 10/18/2023 Provider Dusty Idiopathic urticaria L50.1 and Essential (primary) hypertension I10 Assessments Encounter Date Diagnosis (ICD Code) Assessment Notes Treatment Notes Treatment Clinical Notes Section Notes 10/18/2023 Idiopathic urticaria (ICD-10 - L50.1) 10/18/2023 Essential (primary) hypertension (ICD-10 - I10) Plan Of Treatment Medication Medication Name Sig Start Date Stop Date Notes Furosemide 20 MG TAKE 1 TABLET BY SUZANNE TH EVERY MORNING. APPOINTMENT NEEDED Xolair 150 MG as directed 300 mg s ubcutaneously every 4 weeks; Duration: 30 days Lisinopril 20 MG TAKE 1 TABLET BY SUZANNE TH EVERY DAY. APPOINTMENT NEEDED Simvastatin 20 MG 1 tab(s) orally once a day (at bedtime); Duration: 30 day(s) Atenolol 50 MG TAKE 1 TABLET BY SUZANNE TH EVERY DAY. PLEASE CALL FOR APPOINTMENT Auvi-Q 0.3 MG/0.3ML as directed intramus cularly once; Duration: 30 days Progress Notes * Candice FLOYDOB:1955 (70 yo F)Acc No.[id number]:10/18/2023 Patient: Gwendolyn GOMEZ Provider: Lesly Briseno :1955 A ge:68 Y S ex:Female Date:10/18/2023 Address:[address] [place], [place] [id number] Pcp:Leah Slaughter Subjective: * Chief Complaints: * 1 . [facility] To [facility] Conversion Encounter. * Medical History: * Medications: T aking Fenofibrate 145 MG Tablet 1 tab(s) orally once a day , Not-Taking/PRN XOLAIR PREFILLED SYRINGE 150 MG/ML SOLUTION INJECT 300 MG SUBCUTANEOUSLY EVERY 4 WEEKS , Notes to Pharmacist: *Please review for potential replacement for e-prescription and drug interaction check*, Not-Taking/PRN Cetirizine HCl 10 MG Tablet 1 tab(s) orally daily Objective: * Vitals: Assessment: * Assessment: 1. I diopathic urticaria - L50.1 (Primary) 2 . E ssential (primary) hypertension - I10 Plan: * Treatment: 2. E ssential (primary) hypertension Continue Furosemide Tablet, 20 MG, TAKE 1 TABLET BY MOUTH EVERY MORNING. APPOINTMENT NEEDED; C ontinue Lisinopril Tablet, 20 MG, TAKE 1 TABLET BY MOUTH EVERY DAY. APPOINTMENT NEEDED; C ontinue Atenolol Tablet, 50 MG, TAKE 1 TABLET BY MOUTH EVERY DAY. PLEASE CALL FOR APPOINTMENT. 3. O thers Continue Simvastatin Tablet, 20 MG, 1 tab(s), orally, once a day (at bedtime), 30 day(s), 30, Refills 0. * Billing Information: * Visit Code: * Procedure Codes: * Electronic signature of Timmy LombardiZ-Migration on 03/12/2025 at 10:15 PM PERSONNEL CLERK Sign off status: Pending * Provider: Lesly vega Migration Date: 0 10/18/2023 Generated for Jazmine scales/Ortiz/Henny on: 05/12/2024 10:15 PM PERSONNEL CLERK
--- OUTSIDE RECORDS SUMMARY | 2024-06-16 11:30 | XMS_ITS ---
Author Organization [facility] [place] ([address]) Address [address] [place] [address] Care Team Providers Care Esthetician/Spa Coordinator Name Role Phone Leah Slaughter Primary Care Provider Unavailab Lawrence Gomez Unavailable [phone] REASON FOR VISIT [facility] follow-up Encounters Encounter Location Date Provider Diagnosis [address] [address] 06/16/2024 Lawrence Taylor Plan Of Treatment No Information Progress Notes * Candice FLOYDOB:1955 (70 yo F)Acc No.[id number]:06/16/2024 Progress Notes Patient: Gwendolyn GOMEZ Provider: Gonzalo Taylor PA-C :1955 A ge:69 Y S ex:Female Date:06/16/2024 Address:[address] [facility] Pcp:Leah Slaughter Subjective: * Chief Complaints: * 1 . [facility] follow-up. * Medical History: Objective: * Vitals: Assessment: Plan: * Treatment: * Billing Information: * Visit Code: * Procedure Codes: * Electronic signature of Armin Taylor PA-C on 03/12/2025 at 10:15 PM CERTIFIED FORKLIFT OPERATOR Sign off status: Pending * Provider: Gonzalo Taylor PA-C Date: 0 06/16/2024 Generated for Printi ng/Faxing/eTransmitting on: 1 05/12/2024 10:15 PM CERTIFIED FORKLIFT OPERATOR
--- OUTSIDE RECORDS SUMMARY | 2024-09-02 11:30 | XMS_ITS ---
Author Organization [facility] [place] ([address]) Address [address] [place] [address] Care Team Providers Care Food Analyst Name Role Phone Leah Slaughter Primary Care Provider Unavailab Lawrence Gomez Unavailable [phone] REASON FOR VISIT [facility] follow-up Encounters Encounter Location Date Provider Diagnosis [address] [address] 09/02/2024 Lawrence Taylor Plan Of Treatment No Information Progress Notes * Candice FLOYDOB:1955 (70 yo F)Acc No.[id number]:09/02/2024 Progress Notes Patient: Gwendolyn GOMEZ Provider: Gonzalo Taylor PA-C :1955 A ge:69 Y S ex:Female Date:09/02/2024 Address:[address] [facility] Pcp:Leah Slaughter Subjective: * Chief Complaints: * 1 . [facility] follow-up. * Medical History: Objective: * Vitals: Assessment: Plan: * Treatment: * Billing Information: * Visit Code: * Procedure Codes: * Electronic signature of Armin Taylor PA-C on 03/12/2025 at 10:15 PM REMOTE BROADCAST TECHNICIAN Sign off status: Pending * Provider: Gonzalo Taylor PA-C Date: 0 09/02/2024 Generated for Printi ng/Faxing/eTransmitting on: 1 05/12/2024 10:15 PM REMOTE BROADCAST TECHNICIAN
--- OUTSIDE RECORDS SUMMARY | 2025-03-12 22:16 | XMS_ITS | Encounter Summary ---
Author Organization [facility] Address [facility] [place] [address] Care Team Providers Care Marketing Project Specialist Name Role Phone Araceli Slaughter PA-C Primary Care Provider +1- [phone] Reason for Visit * Reason Comments Foreign Body in Ear Encounter Details Date Type Department Care Team (Late st Contact Info) Description 03/12/2025 10:16 PM CURRICULUM DEVELOPMENT SPECIALIST - 03/12/2025 10:44 PM [facility] Emergency [facility] Emergency Room [address] [place] [address] Roselia Ashby MD [address] [place] [address] Foreign Body in Ear Discharge Disposition: Home or Self Care (Routine Discharge) Social History Tobacco Use Types Packs/Day Years Used Date Smoking Tobacco: Never Smokeless Tobacco: Never Comments:na Alcohol Use Standard Drinks/Week Comments No 0 (1 standard drink = 0.6 oz pur e alcohol) AUDIT-C Answer Date Recorded Frequency of Alcohol Consumption Never 01/25/2019 Average Number of Drinks Not on file 019 Frequency of Binge Drinking Not on file 01/04 PHQ-2 Answer Date Recorded Patient Health Questionnaire-2 Score 0 01/17/2023 Comments No Sex and Gender Information Value Date Recorded Sex Assigned at Female 01/25/2019 9:57 AM CDT Legal Sex Female 5:57 PM CDT Gender Identity Female 01/25/2019 9:57 AM CDT Sexual Orientation Straight 01/25/2019 9: 57 AM CDT documented as of this encounter Last Filed Vital Signs Vital Sign Reading Time Taken Comments Blood Pressure 170/99 03/12/2025 10:28 PM CURRICULUM DEVELOPMENT SPECIALIST Pulse 96 03/12/2025 10:28 PM CURRICULUM DEVELOPMENT SPECIALIST Temperature 36.9 C (98.5 F) 03/12/2025 10:28 PM CURRICULUM DEVELOPMENT SPECIALIST Respiratory Rate 16 03/12/2025 10:28 PM CURRICULUM DEVELOPMENT SPECIALIST Oxygen Saturation 98% 03/12/2025 10:28 PM CURRICULUM DEVELOPMENT SPECIALIST Inhaled Oxygen Concentration - - Weight 68 kg (150 lb) 03/12/2025 10:28 PM CURRICULUM DEVELOPMENT SPECIALIST Height 165.1 cm (5' 5) 03/12/2025 10:28 PM CURRICULUM DEVELOPMENT SPECIALIST Body Mass Index 24.96 03/12/2025 10:28 PM CURRICULUM DEVELOPMENT SPECIALIST documented in this encounter Functional Status * Calculated C-SSRS Risk Score (Lifetime/Recent) Answer Date of Assessment Author Status No Risk Indicated 03/12/2025 10:29 PM CURRICULUM DEVELOPMENT SPECIALIST Juan A Costa RN Active * [place] Suicide Severity Rating Scale (Screener/Recent Self-Report) Question Answer Date of Assessment Author Status 1. Wish to be (Past 1 Month) No 03/12/2025 10:29 PM CURRICULUM DEVELOPMENT SPECIALIST Dory Costa RN Active 2. Non-Specific Active Suicidal Thoughts (Past 1 Month) No 03/12/2025 10:29 PM CURRICULUM DEVELOPMENT SPECIALIST Dory Costa RN Active 6. Suicidal Behavior (Lifetime) No 03/12/2025 10:29 PM CURRICULUM DEVELOPMENT SPECIALIST Dory Costa RN Active documented as of this encounter Discharge Instructions * Discharge Instructions* Roselia Ashby MD - 03/12/2025 10:44 PM CURRICULUM DEVELOPMENT SPECIALIST Unable to remove object patient states she will go to another facility. ICULUM DEVELOPMENT SPECIALIST * Attachments The following attachments cannot be sent through Care Everywhere. * Foreign Body in Ear (German) documented in this encounter Medications at Time of Discharge atenolol 50 MG tablet Take 1 tablet (50 mg total) by mouth daily. 1 01/18/2019 furosemide 20 MG tablet Take 1 tablet (20 mg total) by mouth every morning. 1 12/23/2018 lisinopril 20 MG tablet Take 1 tablet (20 mg total) by mouth daily. 0 11/28/2018 simvastatin 20 MG tablet Take 1 tablet (20 mg total) by mouth nightly at bedtime. at bedtime. 0 11/02/2018 documented as of this encounter ED Notes * Angeline Costa RN - 03/12/2025 10:43 PM CSTSummary: discharge Patient verbalized understanding of discharge instructions. Patient was able to ambulate towards the exit of the ed. ICULUM DEVELOPMENT SPECIALIST * Angeline Costa RN - 03/12/2025 10:42 PM CSTSummary: patient request Patient states that she would rather go to [facility] due to lack of supplies to remove hearing aid. MD at bedside and discharged patient. ICULUM DEVELOPMENT SPECIALIST * Angeline Costa RN - 03/12/2025 10:26 PM CSTSummary: triage Patient to ed via pov with c/o of foreign body- hearing aid stuck in the right ear. Patient states that she got her hearing aid bud stuck tonight. Patient denies pain in that ear. Patient states thishas happened multiple times and she has been able to get the bud removed but was unsuccessful at this time. ICULUM DEVELOPMENT SPECIALIST documented in this encounter Plan of Treatment Upcoming Encounters Date Type Department Care Team (Late st Contact Info) Description 09/05/2025 8:00 AM CDT Appointment [facility] [address] [place] [address] Kassandra Rocha MD [address] [place] [address] documented as of this encounter Visit Diagnoses Diagnosis Foreign body of right ear, initial encounter- Primary documented in this encounter Care Teams Marketing Project Specialist Relationship Specialty Start Date End Date Araceli Slaughter PA-C [address] [place] [address] [address] [place] [address] PCP - General PHYSICIAN DATA MANAGEMENT ASSOCIATE 06/17/22 documented as of this encounter
--- OUTSIDE RECORDS SUMMARY | 2025-03-12 22:16 | XMS_ITS | Encounter Summary ---
Author Organization [facility] Address [facility] [place] [address] Care Team Providers Care Provider Network Manager Name Role Phone Araceli Slaughter PA-C Primary Care Provider +1- [phone] Reason for Visit * Reason Comments Foreign Body in Ear Encounter Details Date Type Department Care Team (Late st Contact Info) Description 03/12/2025 10:16 PM SUPERINTENDENT CONTAINER TERMINAL - 03/12/2025 10:44 PM [facility] Emergency [facility] Emergency Room [address] [place] [address] Roselia Ashby MD [address] [place] [address] Foreign Body in Ear Discharge Disposition: [...] Comments Blood Pressure 170/99 03/12/2025 10:28 PM SUPERINTENDENT CONTAINER TERMINAL Pulse 96 03/12/2025 10:28 PM SUPERINTENDENT CONTAINER TERMINAL Temperature 36.9 C (98.5 F) 03/12/2025 10:28 PM SUPERINTENDENT CONTAINER TERMINAL Respiratory Rate 16 03/12/2025 10:28 PM SUPERINTENDENT CONTAINER TERMINAL Oxygen Saturation 98% 03/12/2025 10:28 PM SUPERINTENDENT CONTAINER TERMINAL Inhaled Oxygen Concentration - - Weight 68 kg (150 lb) 03/12/2025 10:28 PM SUPERINTENDENT CONTAINER TERMINAL Height 165.1 cm (5' 5) 03/12/2025 10:28 PM SUPERINTENDENT CONTAINER TERMINAL Body Mass Index 24.96 03/12/2025 10:28 PM SUPERINTENDENT CONTAINER TERMINAL documented in this encounter Functional Status * Calculated C-SSRS Risk Score (Lifetime/Recent) Answer Date of Assessment Author Status No Risk Indicated 03/12/2025 10:29 PM SUPERINTENDENT CONTAINER TERMINAL Juan A Costa RN Active * [place] Suicide Severity Rating Scale (Screener/Recent Self-Report) Question Answer Date of Assessment Author Status 1. Wish to be (Past 1 Month) No 03/12/2025 10:29 PM SUPERINTENDENT CONTAINER TERMINAL Dory Costa RN Active 2. Non-Specific Active Suicidal Thoughts (Past 1 Month) No 03/12/2025 10:29 PM SUPERINTENDENT CONTAINER TERMINAL Dory Costa RN Active 6. Suicidal Behavior (Lifetime) No 03/12/2025 10:29 PM SUPERINTENDENT CONTAINER TERMINAL Dory Costa RN Active documented as of this encounter Discharge Instructions * Discharge Instructions* Roselia Ashby MD - 03/12/2025 10:44 PM SUPERINTENDENT CONTAINER TERMINAL Unable to remove object patient states she will go to another facility. RINTENDENT CONTAINER TERMINAL * Attachments The following attachments cannot be sent through Care Everywhere. * Foreign Body in Ear (Mozambican) documented in this encounter Medications at Time [...] ambulate towards the exit of the ed. RINTENDENT CONTAINER TERMINAL * Angeline Costa RN - 03/12/2025 10:42 PM CSTSummary: patient request Patient states that she would rather go to [facility] due to lack of supplies to remove hearing aid. MD at bedside and discharged patient. RINTENDENT CONTAINER TERMINAL * Angeline Costa RN - 03/12/2025 10:26 [...] removed but was unsuccessful at this time. RINTENDENT CONTAINER TERMINAL documented in this encounter Plan of Treatment Upcoming Encounters Date Type Department Care Team (Late st Contact Info) Description 09/05/2025 8:00 AM CDT Appointment [facility] [address] [place] [address] Kassandra Rocha MD [address] [place] [address] documented as of this encounter Visit Diagnoses Diagnosis Foreign body of right ear, initial encounter- Primary documented in this encounter Care Teams Provider Network Manager Relationship Specialty Start Date End Date Araceli Slaughter PA-C [address] [place] [address] [address] [place] [address] PCP - General PHYSICIAN WOODWORKING MACHINE OPERATOR 06/17/22 documented as of this encounter
[2025-03-12 22:56] VITALS: BP 182/89; PULSE 89; RESP 18; TEMP 36.8; O2SAT 98
--- OUTSIDE RECORDS SUMMARY | 2025-03-12 22:57 | XMS_ITS | Encounter Summary ---
Author Organization [facility] Address [facility] [place] [address] Care Team Providers Care Buffer Automatic Name Role Phone Araceli Slaughter PA-C Primary Care Provider +1- [phone] Encounter Details Date Type Department Care Team (Latest Contact Info) Description 03/12/2025 Travel Social History Tobacco Use Types Packs/Day Years [...] AM CDT documented as of this encounter Functional Status * Calculated C-SSRS Risk Score (Lifetime/Recent) Answer Date of Assessment Author Status No Risk Indicated 03/12/2025 10:29 PM Juan A Nicholson RN Active * [place] Suicide Severity Rating Scale (Screener/Recent Self-Report) Question Answer Date of Assessment Author Status 1. Wish to be (Past 1 Month) No 03/12/2025 10:29 PM Dory Nicholson RN Active 2. Non-Specific Active Suicidal Thoughts (Past 1 Month) No 03/12/2025 10:29 PM Dory Nicholson RN Active 6. Suicidal Behavior (Lifetime) No 03/12/2025 10:29 PM Dory Nicholson RN Active documented as of this encounter Plan of Treatment Upcoming Encounters Date Type Department Care Team (Late st Contact Info) Description 09/05/2025 8:00 AM CDT Appointment [facility] [address] [place], [place] [id number] Kassandra Rocha MD [address] [place] [address] documented as of this encounter Visit Diagnoses Not on filedocumented in this encounter Care Teams Buffer Automatic Relationship Specialty Start Date End Date Araceli Slaughter PA-C [facility] [place] [address] PCP - General PHYSICIAN WEB UI DEVELOPER 06/17/22 documented as of this encounter
--- OUTSIDE RECORDS SUMMARY | 2025-03-12 22:57 | XMS_ITS | Patient Health Record ---
Author Organization [facility] [place] ([address]) Address [address] [place] [address] Care Team Providers Care Machine Adjuster Name Role Phone Torin Slaughterah Primary Care Provider Lawrence Clayton Unavailable [phone] Allergies No Known Allergies Reason For Referral Reason L50.0 Referring Provider First Name Fidel Referring Provider Last Name Turner Referred Organization [facility] Referred Provider Lawrence Taylor Referred Address [address] [place],[address], Referred Provider Specialty Allergy/Immu nology Referral Priority [...] Status W/U Status Risk Notes Problem Hyperlipidemia (72391921) Other hyperlipidemia (E78.4) Active confirmed Problem Chronic allergic conjunctivitis (06350618) Other chronic allergic conjunctivitis (H10.45) Active confirmed Problem Allergic rhinitis caused by pollen (disorder) (77655205) Allergic rhinitis due to pollen (J30.1) Active confirmed Problem Allergic rhinitis caused by animal hair and dander (734898635175563) Allergic rhinitis due to animal (cat) (dog) hair and dander (J30.81) Active confirmed Problem Allergic rhinitis (13739989) Other allergic rhinitis (J30.89) Active confirmed Problem Uncomplicated moderate persistent asthma (652119107) Moderate persistent asthma, uncomplicated (J45.40) Active confirmed Problem Uncomplicated severe persistent asthma (031676692) Severe persistent asthma, uncomplicated (J45.50) Active confirmed Problem 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 Problem Idiopathic urticaria (11636751) Idiopathic urticaria (L50.1) Active confirmed Problem Hypertrophy of nasal turbinates (38375937) Hypertrophy of nasal turbinates (J34.3) Active confirmed Problem Essential hypertension (55764744) Essential (primary) hypertension (I10) Active confirmed Plan Of Treatment No Information Insurance Providers Payer Name Payer Address Payer Phone Subscriber Number Group Number Insured Name Patient Relationship to Insured Coverage Start Date Coverage End Date [employer] [address] [address] [place] [phone] [id number] Gwendolyn Peters Self - patient is the insured Medical (General) History Medical History History ICD Code Other hyperlipidemia E78.4 Essential (primary) hypertension I10 Idiopathic urticaria L50.1 Cholinergic urticaria L50.5 Hypertrophy of nasal turbinates J34.3 Surgical History Surgery Date(Month/Year)
--- OUTSIDE RECORDS SUMMARY | 2025-03-12 22:58 | XMS_ITS | Encounter Summary ---
Author Organization [facility] Address [address] [facility] [place] [address] Care Team Providers Care Linotype Machinist Name Role Phone Noemí Vitale Primary Care Provider Encounter Details Date Type Department Care Team (Late st Contact Info) Description 08/31/2020 Telephone [facility] [address] [place] [address] Demarcus Lucia MD [address] OF ALLERGY/IMMUNOLOGY [place], [place] [id number] Social History Tobacco Use Types Packs/Day Years [...] to Jennifer. Thanks. Patient Call Back number: [phone] documented in this encounter Plan of Treatment Not on file documented as of this encounter Visit Diagnoses Not on filedocumented in this encounter Care Teams Linotype Machinist Relationship Specialty Start Date End Date Noemí Vitale DO [address] [place] [phone] PCP - General Family Medicine 08/23/20 documented as of this encounter
--- OUTSIDE RECORDS SUMMARY | 2025-03-12 22:58 | XMS_ITS | Data Portability ---
Author Organization [facility] for [facility], [id number] [facility] Address [address] [place] [address] Assessment No assessment recorded. Plan of Treatment Reminders Order Date Submit Date Provider Last Modified By Organization Details Last Modified Time Details Appointments ANNUAL- EST 15 2025 07:30A M MICK MIMS MD Not available Not available Not available Lab None recorded. Referral None recorded. Procedures None recorded. Surgeries None recorded. Imaging MAMMO, screening , tomosynth esis, bilateral [address] [place] [address] - Radiology New Fax # As Of 08/25/23), [address] [place], [address], 03/04/2025 13:04:02 Medication Orders None recorded. Patient TargetsNo targets recorded. Patient InstructionsNo instructions recorded. Reason for Referral None Reported. Problems Name Problem SNOMED Code Status Onset Date Resolution Date Notes Provider Name and Address Organization Details Recorded Time Idiopathic urticaria 40430541 Active Chronic idiopathic urticaria, Problem Code: 708.1; Problem Code Type: ICD-9; Not Available [facility] 12:22:40 Essential hypertensi on 21216118 Active High Blood Pressure, Problem Code Descriptio n: 'High Blood Pressure'; Not Available [facility] 12:22:40 Hyperchole sterolemia 15008894 Active 2024 Sarah mejia [facility] for [facility] 07/24/202 5 08:51:19 Problem Notes None recorded. Procedures Surgical History Date Name Laterality Status Provider Name and Address Organization Details Recorded Time 5 Date of Last Mammogram completed [facility] 11/25/2024 08:52:34 0 Date of Last Pap Smear completed [facility] 11/24/2024 16:17:22 Imaging Results None recorded. Procedure Notes None recorded. Medical Equipment None Reported. Allergies Allergen ID Allergen Name Allergen Category Reaction Reaction Severity Criticality Documentation Date Start Date Code Code System Note Provider Name and Address Organization Details Recorded Time 775062 Product containin g penicilli n (product) medicatio n hives Not available Not available 09/02/2024 88665 8001 SNOMED Aller gyCod e: '476' ; Aller gyNam e: 'PENI CILLI NS'; Aller gyCon ceptT ype: 'FDBA LLERG P'; Not Available [facility] 5 13:06:54 616615 pseudoeph edrine / triprolid ine medicatio n hives Not available Not available 09/02/2024 01169 7 RxNorm Not Available [facility] 13:06:55 Medications Name Sig Start Date Stop [...] Updated DateTime 11/25/2024 165.1 cm 31.4 kg/m2 05312.8 g 124/68 mm[Hg] Sarah Sampson [facility] 11/25/2024 08:49:25 Social History Question Answer Notes LastModified by [employer] Details LastModified Time Tobacco Smoking Status Never Smoker Not Available [facility] 09/02/2024 15:16:23 Do You Have An Advance [...] Functional Status Question Answer Note LastModified by [employer] Details LastModified Time Do you use any illicit or recreational drugs? No Information not available 09/02/2024 What is your level of alcohol consumption? Occasional Qty: 0-2 per day; Note: Use status used: Never Information not available 09/02/2024 Are you currently employed? No Information not available 11/25/2024 What is your occupation? Note: [employer] retired Information not available 09/02/2024 Mental Status [...] quadrivalent, PF 2 [facility] 11/24/2024 16:15:16 Influenza, high-dose, quadrivalent, PF 2 korina mejia [facility] 11/24/2024 16:15:16 Influenza, high-dose, quadrivalent, PF 0 completed Sarah Voellinger null, [place] - [facility] 11/24/2024 16:15:16 Influenza, adjuvanted, quadrivalent, PF 1 completed Sarah [place] null, [place] [facility] 11/24/2024 16:15:16 COVID-19, mRNA, LNP-S, PF, 100 mcg/0.5mL dose or 50 mcg/0.25mL dose 1 completed Sarah Vo[place]er null, [place] [facility] 11/24/2024 16:15:16 Tdap 5 completed Sarah Vo[place]er null, [place] [facility] 11/24/2024 16:15:16 Pneumococcal conjugate PCV 13 1 completed Sarah Voellinger null, [place] [facility] 11/24/2024 16:15:16 Past Encounters Encounter ID Performer Location Encounter Start Date Encounter Closed Date Diagnosis/Indication Diagnosis SNOMED-CT Code Diagnosis ICD10 Code Diagnosis IMO Codes Diagnosis Note [id number] [address], MD [id number] [facility] [address] [place] [address] 11/25/2024 08:35:03 11/25/2024 09:29:14 Screening mammography 63660397 Z12.31 [id number] Gynecologi c examination 37733016 Z01.629 4993181 Doing well.Yearl y mammogram due in [facility] reening colonoscop y--recGene ral lab screening yearly--do ne with PCP Health Concerns Section Related Observation LastModified by Organization Detai ls LastModified Time None Recorded Concern Status LastModified by Organization Details LastModified Time None Recorded Advance Directives Directive N: Payers Insurance Date Sequence Insurance Name Policy Number Policy Keys Covered Member ID Keys Member ID Guarantor Name 12/30/2024 1 [employer] [employer] (MEDICARE REPLACEMENT HMO) [id number] Gwendolyn Peters [id number] Gwendolyn Peters 11/23/2024 1 *SELF PAY* Toy Peters Notes Date Note Type Note Provider Name and Address Organization Details Recorded Time 5 text/html Annual MANAGER CHANNEL - McwhcReported by PatientHistoryFor history, patient reportsno [...] and exercise.ROS as noted in the HPI Top Dyeing Machine Tender offered per [facility] policy. Top Dyeing Machine Tender was DECLINED.Patient is here for annual exam. No complaints. No postmenopausal bleedingPoison Michelle todayOn steriods. No other issues. MICK LIZ MD [address] [facility] [address], [place], [address], [facility] 11/25/2024 09:36:52 OBGyn Episode No OBEpisode recorded.
--- OUTSIDE RECORDS SUMMARY | 2025-03-12 22:58 | XMS_ITS | Clinical Summary ---
Author Organization [facility] Address [facility] [place] [address] Care Team Providers Care Director Executive Communications Name Role Phone Gary Slaughter PA-C Primary Care Provider +1- [phone] Allergies No known active allergies Medications atenolol 50 MG tablet Take 1 tablet (50 mg total) by mouth daily. 1 01/18/2019 Active furosemide 20 MG tablet Take 1 tablet (20 mg total) by mouth every morning. 1 12/23/2018 Active lisinopril 20 MG tablet Take 1 tablet (20 mg total) by mouth daily. 0 11/28/2018 Active simvastatin 20 MG tablet Take 1 tablet (20 mg total) by mouth nightly at bedtime. at bedtime. 0 11/02/2018 Active Active Problems Problem Noted Date Diagnosed Date Fall 01/18/2023 BMI 31.0-31.9,adult 01/18/2023 Closed dislocation of right shoulder 12/15/2022 Assessment & Plan (01/22/2023 3:20 PM CDT): Recommendation at this time, since she is only 6-weeks out, we will begin some physician directed exercises and we will see her back if she needs further attention. She certainly can give us a call if she wants to proceed with any formal physical therapy or an MRI. Assessment & Plan (12/16/2022 12:37 AM CDT): The recommendation at this time is to maintain her immobilizer. We will see her back in one month for a repeat evaluation with an x-ray. Encounters Date Type Department Care Team Description 03/12/2025 10:16 PM POLLUTION CONTROL ENGINEER - 03/12/2025 10:44 PM POLLUTION CONTROL ENGINEER Emergency [facility] Emergency Room [id number] [place] [address] Roselia Ashby MD Foreign Body in Ear Discharge Disposition: Home or Self Care (Routine Discharge) 03/12/2025 Travel from Last 3 Months Immunizations Immunization Administration Dates Next Due MODERNA COVID-19 (12+) MRNA, LNP-S, PF, 100 MCG/ 0.5 ML DOSE 06/30/2020 Family History Medical History Relation Comments Hypertension Brother Cancer Father Hypertension Father Breast Cancer Maternal Aunt Cancer Mother Hypertension Mother Breast Cancer Paternal Aunt Relation Status Comments Brother Father Alive Maternal Aunt Mother Paternal Aunt Alive Social History Tobacco Use Types Packs/Day Years Used Date Smoking Tobacco: Never Smokeless Tobacco: Never Tobacco Cessation:Counseling Given: No Comments:na Alcohol Use Standard Drinks/Week Comments No [...] Orientation Straight 01/25/2019 9: 57 AM CDT Last Filed Vital Signs Vital Sign Reading Time Taken Comments Blood Pressure 170/99 03/12/2025 10:28 PM POLLUTION CONTROL ENGINEER Pulse 96 03/12/2025 10:28 PM POLLUTION CONTROL ENGINEER Temperature 36.9 C (98.5 F) 03/12/2025 10:28 PM POLLUTION CONTROL ENGINEER Respiratory Rate 16 03/12/2025 10:28 PM POLLUTION CONTROL ENGINEER Oxygen Saturation 98% 03/12/2025 10:28 PM POLLUTION CONTROL ENGINEER Inhaled Oxygen Concentration - - Weight 68 kg (150 lb) 03/12/2025 10:28 PM POLLUTION CONTROL ENGINEER Height 165.1 cm (5' 5) 03/12/2025 10:28 PM POLLUTION CONTROL ENGINEER Body Mass Index 24.96 03/12/2025 10:28 PM POLLUTION CONTROL ENGINEER Plan of Treatment Upcoming Encounters Date Type Department Care Team (Late st Contact Info) Description 09/05/2025 8:00 AM CDT Appointment [facility]ography [address] [place] [address] Mick Liz MD [address] [place] [address] Health Maintenance Due Date Last Done Comments Colorectal Cancer Screening Colonoscopy (10 Years) 1955 Hepatitis C 1973 Zoster Vaccines (1 of 2) 2005 Annual Medicare Wellness Visit 02/21/2020 Pneumococcal Vaccine: 50+ Years (2 of 2 - PCV20 or PCV21) 03/07/2022 03/07/2021 COVID-19 Vaccine (3 - season) 2025 06/30/2020, 07/15/2019 DTaP, Tdap and Td Vaccines (3 - Td or Tdap) 01/28/2025 01/28/2015, 11/25/2011 Influenza Adult (#1) 2025 03/08/2022, 03/11/20 20 Mammogram Screening 08/30/2026 08/30/2024, 08/29/2023, 06/17/2022, Additional history exists RSV Immunization or 60+ Years (1 - 1-dose 75+ series) 2030 Dexa Scan (General) Completed 02/12/2024 Hepatitis A Vaccines Aged Out No long er eligible based on patient's age to complete this topic Meningococcal B Vaccine Aged Out No l onger eligible based on patient's age to complete this topic Meningococcal Vaccine Aged Out No erick jessica eligible based on patient's age to complete this topic RSV Immunizations Under 20 Months Aged Out No longer eligible based on patient's age to complete this topic Procedures Procedure Name Priority Date/Time Associated Diagnosis Comments MG SCREENING W STEFANI BRENDA DIGI Routine 08/30/2024 1:25 PM CDT Encounter for screening mammogram for malignant neoplasm of breast BONE DENSITY/DEXA Routine 02/12/2024 10: 22 AM CDT Other primary ovarian failure from Last 3 Months or Most Recently Relevant to Health Maintenance Results * MG SCREENING W STEFANI BRENDA DIGI (08/30/2024 1:25 PM CDT) Anatomical Region Laterality Modality Breast Bilateral Mammography 08/30/2024 3:25 PM CDT Impressions 08/30/2024 3:26 PM CDT =====IMPRESSION:===== No mammographic findings suggestive of malignancy ASSESSMENT: ACR BI-RADS 2 - BENIGN FINDING(S) Recommendation: 1: Routine Screening Bilateral COMMENTS: Ordered By: MICK LIZ Interpreted By: Karthik Villalta MD, 08/30/2024 3:25 PM Narrative 08/30/2024 3:26 PM CDT [address] [address] EXAMINATION: Digital bilateral screening mammogram with 3-D tomosynthesis EXAM DATE/TIME: 08/30/2024 12:27 PM REASON FOR EXAM: Screening Mammogram COMPARISON: Priors including August 2023, June 2022, June 2021. TECHNIQUE: Digital screening mammography of both breasts was performed in addition to 3-D Tomosynthesis technique. This study was read with the assistance of a computer-aided detection system. TISSUE DENSITY: There are scattered areas of fibroglandular density. FINDINGS: No suspicious masses, malignant appearing calcifications, skin thickening or other abnormalities are present. No significant change from the prior exam. us Mick Liz MD MAMMO Final Resul t * BONE DENSITY/DEXA (02/12/2024 10:22 AM CDT) Anatomical Region Laterality Modality Bone Bone Density 02/13/2024 10:4 4 PM CDT Impressions 02/13/2024 10:44 PM CDT IMPRESSION: WHO Classification: Osteopenia RECOMMENDATIONS: All patients should ensure an adequate intake of dietary calcium and vitamin D. The NOF recommend adults under the age of 50 need 1000 mg of calcium and 400-800 IU of vitamin D daily. Effective therapy for the prevention and treatment of osteoporosis include bisphosphonates. Follow-up: People with diagnosed cases of osteoporosis or at high risk for fracture should have regular bone mineral density test. For patients eligible for Medicare, routine testing is allowed once every 2 years. Testing frequency can be increased to one year for patients who have rapidly progressing disease, those who are receiving or discontinuing medical therapy to restore bone mass, or have additional risk factors. Referred By: GARY SLAUGHTER Interpreted By: Sushant Warner MD, 02/13/2024 10:44 PM Narrative 02/13/2024 10:44 PM CDT [facility] [address] [facility] [address] [place] [address] EXAMINATION: BONE DENSITY/DEXA INDICATIONS: Other primary ovarian failure TECHNIQUE: DEXA bone mineral density evaluation was performed in the AP projection over the lumbar spine and both hips utilizing standard imaging techniques. ASSESSMENT: The BMD measured at the AP spine L1-L4 is 0.988 g/cm? with a T-score of -0.5. The BMD measured at the left femoral neck is 0.798 g/cm? with a T-score of -0.5. The BMD measured at the left hip is 0.906 g/cm? with a T-score of -0.3. The BMD measured at the right femoral neck is 0.702 g/cm? with a T-score of - 1.3. The BMD measured at the right hip is 0.870 g/cm? with a T-score of -0.6. FRAX 10-year fracture risk: Major Osteoporotic Fracture: 14% Hip Fracture: 1.6% Procedure Note Sushant Warner MD - 02/13/2024 [facility] [address] [place] [address] EXAMINATION: BONE DENSITY/DEXA INDICATIONS: Other primary ovarian failure TECHNIQUE: DEXA bone mineral density evaluation was performed in the APprojection over the lumbar spine and both hips utilizing standard imagingtechniques. ASSESSMENT: The BMD measured at the AP spine L1-L4 is 0.988 g/cm? with a T-score of-0.5. The BMD measured at the left femoral neck is 0.798 g/cm? with a T-score of-0.5. The BMD measured at the left hip is 0.906 g/cm? with a T-score of -0.3. The BMD measured at the right femoral neck is 0.702 g/cm? with a T-scoreof -1.3. The BMD measured at the right hip is 0.870 g/cm? with a T-score of -0.6. FRAX 10-year fracture risk: Major Osteoporotic Fracture: 14% Hip Fracture: 1.6% IMPRESSION: WHO Classification: Osteopenia RECOMMENDATIONS: All patients should ensure an adequate intake of dietary calcium andvitamin D. The NOF recommend adults under the age of 50 need 1000 mg ofcalcium and 400-800 IU of vitamin D daily. Effective therapy for theprevention and treatment of osteoporosis include bisphosphonates. Follow-up: People with diagnosed cases of osteoporosis or at high risk for fractureshould have regular bone mineral density test. For patients eligible forMedicare, routine testing is allowed once every 2 years. Testing frequencycan be increased to one year for patients who have rapidly progressingdisease, those who are receiving or discontinuing medical therapy torestore bone mass, or have additional risk factors. Referred By: GARY SLAUGHTER Interpreted By: Sushant Warner MD, 02/13/2024 10:44 PM us Gary Slaughter PA-C DEXA Final Resu lt from Last 3 Months or Most Recently Relevant to Health Maintenance Insurance [employer] Care Teams Director Executive Communications Relationship Specialty Start Date End Date Gary Slaughter PA-C [facility] [place] [address] PCP - General PHYSICIAN DESKTOP TECHNICIAN 06/17/22
--- NOTE | 2025-03-12 23:16 | ED.EAR ---
HPI - Ear Problem General Chief complaint: Ear Stated complaint: hearing aid stuck in ear Time Seen by Provider: 03/12/25 23:15 Source: patient Mode of arrival: ambulatory Limitations: no limitations History of Present Illness HPI Narrative: This is a 70 year old female that presents to the ER for foreign body in the right ear. Part of her hearing aid is stuck in her ear. Related Data Home Medications ?Medication ?Instructions ?Recorded ?Confirmed ?Last Taken ?Type ascorbic acid (vitamin C) 1,000 mg 1 g PO DAILY 07/27/20 02/24/25 02/23/25 History tablet cholecalciferol (vitamin D3) 125 125 mcg PO DAILY 07/27/20 02/24/25 02/23/25 History mcg (5,000 unit) capsule multivitamin 1 tablet PO DAILY 07/27/20 02/24/25 02/23/25 History vitamin B complex (B 1 tablet PO DAILY 07/27/20 02/24/25 02/23/25 History Complex-Vitamin B12 tablet) vitamin E 100 unit capsule 100 unit PO DAILY 07/27/20 02/24/25 02/23/25 History zinc 50 mg tablet 50 mg PO DAILY 07/27/20 02/24/25 02/23/25 History Allergies Allergy/AdvReac Type Severity Reaction Status Date / Time Penicillins Allergy Unknown Hives Verified 02/24/25 07:43 Review of Systems Review of Systems: All systems reviewed & are unremarkable except as noted in HPI and below PMFSH Past Medical History Medical History Positive colorectal cancer screening using Cologuard test GERD (gastroesophageal reflux disease) Hyperglycemia Dislocation of right shoulder joint Hyperlipidemia Chronic idiopathic urticaria Hypertension Allergies Surgical History Surgical History No pertinent past surgical history Family History Family History Father Diabetes mellitus Hypertension Depression Anxiety Heart disease Cerebrovascular accident Mother Cancer Sibling Cancer Diabetes mellitus Hypertension Anxiety Depression Heart disease Grandparent Cancer Diabetes mellitus Hypertension Grandparent Cancer Diabetes mellitus Hypertension Heart disease Social History Social History Social History: 07/06/24 very confident with medical forms 01/04/25 patient declined SDOH Second hand tobacco smoke exposure: No Alcohol intake: never Substance use: never Substance use type: does not use Do You Feel Safe in your Home?: Yes Lack of Transportation: No Lack of Food: Never True Current Housing: I Have Housing Concerned About Future Housing: No Difficulty Paying Gas/Electric Bills: No Difficulty Paying for Meds: No Currently Unemployed: No Education: High School Diploma/GED Difficulty w/ Childcare or Family Care: No Living arrangements: with family Occupation/Education: retired Gender identity (if verbalized by the patient): Female Sexual Orientation (if Verbalized by the Patient): Straight or Heterosexual Spiritual care concerns: No Agree to blood products: Yes Exam Narrative: GENERAL: Well-appearing, well-nourished, and in no acute distress. HEAD: Normocephalic, atraumatic. EYES: EOMI. ENT: Right external auditory canal with hearing aid part present EXTREMITIES: Normal range of motion. No edema. SKIN: Warm, dry, no rash. NEURO: No focal deficits. Alert and oriented x3. PSYCH: Normal mood and affect Course Vital Signs Vital signs: Vital Signs Temperature 98.2 F 03/12/25 22:56 Pulse Rate 89 03/12/25 22:56 Respiratory Rate 18 03/12/25 22:56 Blood Pressure 182/89 H 03/12/25 22:56 Pulse Oximetry 98 03/12/25 22:56 Temperature 98.2 F 03/12/25 22:56 Pulse Rate 89 03/12/25 22:56 Respiratory Rate 18 03/12/25 22:56 Blood Pressure 182/89 H 03/12/25 22:56 Pulse Oximetry 98 03/12/25 22:56 Procedures FB Removal Ear Foreign Body #1: Foreign Body Removal Date: 03/12/25 Foreign Body Removal Time: 23:22 Location: ear canal (R) Foreign Body Suspected: other (Hearing aid) TM intact pre-procedure: unable to visualize Foreign Body Removed: yes Foreign Body Removal Technique: forceps Tympanic Membrane Intact Post Procedure: Yes Patient Tolerated Procedure: well and no complications Medical Decision Making MDM Narrative Medical decision making narrative: Part of hearing aid successfully removed without complication Vital Signs Vital Signs: Vital Signs Temperature 98.2 F 03/12/25 22:56 Pulse Rate 89 03/12/25 22:56 Respiratory Rate 18 03/12/25 22:56 Blood Pressure 182/89 H 03/12/25 22:56 Pulse Oximetry 98 03/12/25 22:56 Temperature 98.2 F 03/12/25 22:56 Pulse Rate 89 03/12/25 22:56 Respiratory Rate 18 03/12/25 22:56 Blood Pressure 182/89 H 03/12/25 22:56 Pulse Oximetry 98 03/12/25 22:56 Critical Care Time Critical Care Time Critical Care Time: No Discharge Plan Discharge Clinical Impression: Foreign body in right ear Qualifiers: Encounter type: initial encounter Qualified Code(s): T16.1XXA - Foreign body in right ear, initial encounter Patient Disposition: Home Condition: Stable Instructions: Ear Foreign Body (ED) Patient Language: Spanish Prescriptions: No Action multivitamin Tablet 1 tablet PO DAILY zinc 50 mg tablet 50 mg PO DAILY vitamin E 100 unit capsule 100 unit PO DAILY cholecalciferol (vitamin D3) 125 mcg (5,000 unit) capsule 125 mcg PO DAILY ascorbic acid (vitamin C) 1,000 mg tablet 1 g PO DAILY vitamin B complex [B Complex-Vitamin B12] Tablet 1 tablet PO DAILY omeprazole 20 mg tablet,delayed release (DR/EC) 20 mg PO DAILY Qty: 90 1RF furosemide 20 mg tablet 20 mg PO QAM Qty: 14 0RF simvastatin 20 mg tablet 20 mg PO QHS Qty: 90 1RF atenolol 50 mg tablet 50 mg PO DAILY Qty: 90 1RF lisinopril 20 mg tablet 20 mg PO DAILY Qty: 90 1RF fenofibrate nanocrystallized 145 mg tablet 145 mg PO DAILY Qty: 90 1RF Follow-up/Referrals: Araceli Slaughter PA-C [Primary Care Provider, Family Practice]
--- OUTSIDE RECORDS SUMMARY | 2025-03-12 23:28 | XMS_ITS | Encounter Summary ---
Author Organization [facility] Address [facility] [place] [address] Care Team Providers Care Roller Shop Supervisor Name Role Phone Araceli Slaughter PA-C Primary Care Provider [phone]- [phone] Encounter Details Date Type Department Care Team [...] PM Juan A Nicholson RN Active * [facility] Suicide Severity Rating Scale (Screener/Recent Self-Report) Question [...] Info) Description 09/05/2025 8:00 AM CDT Appointment [facility] [address] [place], [place] [id number] Kassandra Rocha MD [address] [place] [address] documented as of this encounter Visit Diagnoses Not on filedocumented in this encounter Care Teams Roller Shop Supervisor Relationship Specialty Start Date End Date Araceli Slaughter PA-C Replaced by [facility] [place] [address] PCP - General PHYSICIAN SKEIN YARN DRIER 06/17/22 documented as of this encounter
--- OUTSIDE RECORDS SUMMARY | 2025-03-12 23:28 | XMS_ITS | Encounter Summary ---
Author Organization [facility] Address [address] [facility] [place] [address] Care Team Providers Care Hyperion Administrator Name Role Phone Noemí Vitale Primary Care Provider [phone] Encounter Details Date Type Department Care Team (Late st Contact Info) Description 08/31/2020 Telephone [facility] [address] [place] [address] Demarcus Lucia MD [address] OF ALLERGY/IMMUNOLOGY [place], [place] [id number] Social History Tobacco Use Types Packs/Day Years [...] to Jennifer. Thanks. Patient Call Back number: [phone] documented in this encounter Plan of Treatment Not on file documented as of this encounter Visit Diagnoses Not on filedocumented in this encounter Care Teams Hyperion Administrator Relationship Specialty Start Date End Date Noemí Vitale DO [address] [place] [phone] PCP - General Family Medicine 08/23/20 documented as of this encounter
--- OUTSIDE RECORDS SUMMARY | 2025-03-12 23:28 | XMS_ITS | Clinical Summary ---
Author Organization [facility] Address [facility] [place] [address] Care Team Providers Care Marshmallow Maker Name Role Phone Gary Slaughter PA-C Primary Care Provider [phone]- [phone] Allergies No known active allergies Medications atenolol [...] Department Care Team Description 03/12/2025 10:16 PM COMPUTER EQUIPMENT REPAIRER - 03/12/2025 10:44 PM COMPUTER EQUIPMENT REPAIRER Emergency [facility] Emergency Room [id number] [place] [address] Roselia Ashby MD Foreign Body in Ear [...] Comments Blood Pressure 170/99 03/12/2025 10:28 PM COMPUTER EQUIPMENT REPAIRER Pulse 96 03/12/2025 10:28 PM COMPUTER EQUIPMENT REPAIRER Temperature 36.9 C (98.5 F) 03/12/2025 10:28 PM COMPUTER EQUIPMENT REPAIRER Respiratory Rate 16 03/12/2025 10:28 PM COMPUTER EQUIPMENT REPAIRER Oxygen Saturation 98% 03/12/2025 10:28 PM COMPUTER EQUIPMENT REPAIRER Inhaled Oxygen Concentration - - Weight 68 kg (150 lb) 03/12/2025 10:28 PM COMPUTER EQUIPMENT REPAIRER Height 165.1 cm (5' 5) 03/12/2025 10:28 PM COMPUTER EQUIPMENT REPAIRER Body Mass Index 24.96 03/12/2025 10:28 PM COMPUTER EQUIPMENT REPAIRER Plan of Treatment Upcoming Encounters Date Type Department Care Team (Late st Contact Info) Description 09/05/2025 8:00 AM CDT Appointment [facility] [address] [place] [address] Mick Liz MD [address] [place] [address] Health Maintenance Due Date Last Done Comments [...] 3:25 PM Narrative 08/30/2024 3:26 PM CDT [address] [address] EXAMINATION: Digital bilateral screening mammogram with 3-D [...] 10:44 PM Narrative 02/13/2024 10:44 PM CDT [facility] [address] [facility] [address] [place] [address] EXAMINATION: BONE DENSITY/DEXA INDICATIONS: Other primary ovarian [...] Procedure Note Sushant Warner MD - 02/13/2024 [facility] [address] [place] [address] EXAMINATION: BONE DENSITY/DEXA INDICATIONS: Other primary ovarian [...] factors. Referred By: GARY SLAUGHTER Interpreted By: Sushatn Warner MD, 02/13/2024 10:44 PM us Gary Slaughter PA-C DEXA Final Resu lt from Last 3 Months or Most Recently Relevant to Health Maintenance Insurance [employer] Care Teams Marshmallow Maker Relationship Specialty Start Date End Date Gary Slaughter PA-C [facility] [place] [address] PCP - General PHYSICIAN IT INTEGRATION ARCHITECT 06/17/22
== END 2025-03-12 23:41 | disposition home or self-care (01) ==
LOC: ANHED 23:27
PROVIDERS: Emergency Provider Physician Assistant; PCP Physician Assistant Medical
DX: T16.1XXA Foreign body in right ear, initial encounter (principal); I10 Essential (primary) hypertension; E78.5 Hyperlipidemia, unspecified; K21.9 Gastro-esophageal reflux disease without esophagitis; W44.G1XA Audio device entering into or through a natural orifice, initial encounter
CPT/HCPCS: 69200; 99282